=== PATIENT | male | born 1945 | race Hispanic/Latino ===

== ENCOUNTER 2020-10-09 10:29 | Emergency (ER) | payer OTHER ==
[~2020-10-09] VITALS: Ht 160 cm; Wt 77.1 kg
[~2020-10-09 10:29] MED LIST: AZAT100T PO; CEPH500B PO; CHOL100034 PO; FAMO20TA8 PO; FOLI0.8T41 PO; HYDR-3422 PO; LEVE-43 PO; LOSA1TAB42 PO; PRAZ2CAP2 PO; SERT-440 PO; TRAZ150T79 PO
[2020-10-09 10:31] VITALS: BP 117/79
[2020-10-09] MEDS ORDERED: FAMOTIDINE 20MG VIAL IV SCH (11:00)
[2020-10-09] MEDS ORDERED: SOLU-MEDROL 125MG VIAL IVP SCH (11:00)
[2020-10-09] MEDS ORDERED: TERBUTALINE SULFATE VIAL 1MG/ML SQ ONE (11:05)
[2020-10-09 12:02] VITALS: BP 147/72
[2020-10-09] MEDS ORDERED: FAMO-136 PO (13:13)
[2020-10-09] MEDS ORDERED: METH4TAB3 PO (13:13)
[2020-10-09 13:27] VITALS: BP 129/73
== END 2020-10-09 15:13 | disposition home or self-care (01) ==
LOC: EDH 10:29
DX: M06.9 Rheumatoid arthritis, unspecified (principal); E78.00 Pure hypercholesterolemia, unspecified; I10 Essential (primary) hypertension; I25.10 Atherosclerotic heart disease of native coronary artery without angina pectoris; J44.9 Chronic obstructive pulmonary disease, unspecified; Z79.52 Long term (current) use of systemic steroids; Z79.899 Other long term (current) drug therapy; Z88.6 Allergy status to analgesic agent
CPT/HCPCS: 96374; 96375; 99284; J2930; J3490; J3105

== ENCOUNTER 2020-10-31 17:21 | Emergency (ER) | payer OTHER ==
[~2020-10-31] VITALS: Ht 160 cm; Wt 63.5 kg
[~2020-10-31 17:21] MED LIST changes: +FAMO-136 PO; +METH4TAB3 PO
[2020-10-31 17:31] VITALS: BP 149/87
[2020-10-31 17:48] VITALS: BP 149/87
[2020-10-31 18:00] VITALS: BP 149/87
[2020-10-31] MEDS ORDERED: FENTANYL 75 MCG/HR PATCH TD SCH (18:00)
[2020-10-31] MEDS ORDERED: CYCLOBENZAPRINE HCL 10 MG TABLET PO ONE (18:00)
[2020-10-31] MEDS ORDERED: CYCL10 PO (18:31)
[2020-10-31] MEDS ORDERED: PRED20TA3 PO (18:31)
[2020-10-31 19:24] VITALS: BP 155/82
== END 2020-10-31 19:48 | disposition home or self-care (01) ==
LOC: EDH 17:21
DX: M06.9 Rheumatoid arthritis, unspecified (principal); I25.10 Atherosclerotic heart disease of native coronary artery without angina pectoris; J45.909 Unspecified asthma, uncomplicated; Z79.52 Long term (current) use of systemic steroids; Z79.899 Other long term (current) drug therapy; Z88.6 Allergy status to analgesic agent; Z95.0 Presence of cardiac pacemaker

== ENCOUNTER → 2022-05-25 | Outpatient (CLI) | payer OTHER ==
[~2022-05-25] MED LIST changes: +CYCL10TA16 PO; +PRED20TA3 PO
== END | disposition home or self-care (01) ==
LOC: SHCH 07:41
PROVIDERS: ATTEND Student in an Organized Health Care Education/Training Program
DX: I34.0 Nonrheumatic mitral (valve) insufficiency (principal); I11.9 Hypertensive heart disease without heart failure; E78.5 Hyperlipidemia, unspecified; R07.9 Chest pain, unspecified; Z95.0 Presence of cardiac pacemaker; Z95.1 Presence of aortocoronary bypass graft
CPT/HCPCS: 93306

== ENCOUNTER → 2022-05-30 | Outpatient (CLI) | payer OTHER | END | disposition home or self-care (01) | LOC: SHCH 12:53 | PROVIDERS: ATTEND Student in an Organized Health Care Education/Training Program | DX: I73.9 Peripheral vascular disease, unspecified (principal) | CPT/HCPCS: 93925 ==